=== PATIENT | male | born 1995 | race Caucasian/White ===

== ENCOUNTER 2018-08-01 11:29 | Emergency (ER) | payer OTHER ==
[~2018-08-01] VITALS: Ht 167.6 cm; Wt 68.0 kg
[~2018-08-01 11:29] MED LIST: AMOXICILLIN 50500 MG PO; BENADRYL25 MG PO; GENVOYA TABLET1 EACH PO; IBUPROFEN 600600 M1 PO; LISINOPRIL10 MG PO; MIRTAZAPINE45 MG PO; SEROQUEL 50 MG50 MG PO; SEROQUEL300 MG PO; STRIBILD TABLE1 EACH PO; TOPROL XL25 MG PO; VISTARIL50 MG PO; WELLBUTRIN XL300 MG PO; ZESTRIL10 MG PO
[2018-08-01] MEDS ORDERED: BUSPIRONE HCL10 MG PO (11:41)
[2018-08-01] MEDS ORDERED: HYDROXYZINE HCL10 M2 PO (11:41)
[2018-08-01 12:16] LABS: CALCIUM 9.2 mg/dL (8.5-10.1); CREATININE 0.8 mg/dL (0.6-1.3); POTASSIUM 4.1 mmol/L (3.5-5.1)
[2018-08-01 12:28] VITALS: BP 138/81
== END 2018-08-01 12:29 | disposition home or self-care (01) ==
LOC: M.ERS 11:29
PROVIDERS: Emergency Medicine Emergency Medical Services
DX: G25.71 Drug induced akathisia (principal); T43.595A Adverse effect of other antipsychotics and neuroleptics, initial encounter; Y92.89 Other specified places as the place of occurrence of the external cause; F31.9 Bipolar disorder, unspecified; Z88.5 Allergy status to narcotic agent

== ENCOUNTER 2020-12-02 14:07 | Emergency (ER) | payer OTHER ==
[~2020-12-02] VITALS: Ht 162.6 cm; Wt 68.0 kg
[~2020-12-02 14:07] MED LIST changes: +BUSPIRONE HCL10 MG PO; +HYDROXYZINE HCL10 M2 PO
[2020-12-02 14:38] LABS: URINE BILIRUBIN NEGATIVE (Negative); URINE BLOOD NEGATIVE (Negative); URINE CLARITY CLEAR; URINE COLOR YELLOW; URINE GLUCOSE-RANDOM NEGATIVE (Negative); URINE KETONES NEGATIVE (Negative); URINE LEUKOCYTES-REFLEX NEGATIVE (Negative); URINE NITRITE-REFLEX NEGATIVE (Negative); URINE PROTEIN NEGATIVE (Negative)
[2020-12-02 14:39] LABS: ABSOLUTE EOSINOPHILS 0.2 thou/uL (0.0-0.7); ABSOLUTE LYMPHOCYTES 3.1 thou/uL (0.8-5.3); ABSOLUTE MONOCYTES 0.2 thou/uL (0.0-1.2); ABSOLUTE NEUTROPHILS 1.6 thou/uL (1.6-8.1); BASOPHILS 0.7 %; EOSINOPHILS 4.1 %; HEMATOCRIT 48.6 % (42.0-52.0); LYMPHOCYTES 59.1 %; MCH 30.7 pg (26.0-34.0); MCV 87.6 fL (80.0-100.0); MONOCYTES 4.6 %; MPV 7.4 fl. (7.2-11.1); NUCLEATED RBCS 0 /100WBC; PLATELET COUNT* 285 thou/uL (150-400); POLYS 31.5 %; RBC 5.56 mil/uL (4.50-6.00); RDW-CV 13.2 % (10.5-14.5); WBC 5.2 thou/uL (4.0-11.0)
[2020-12-02 14:46] LABS: AMP/METHAMP POSITIVE (Negative); BARBITURATES Negative (Negative); BENZODIAZEPINES Negative (Negative); COCAINE Negative (Negative); METHADONE Negative (Negative); OPIATES Negative (Negative); PCP Negative (Negative); THC Negative (Negative)
[2020-12-02 14:48] LABS: CALCIUM 8.3 mg/dL (8.5-10.1); CREATININE 0.9 mg/dL (0.6-1.3); POTASSIUM 3.9 mmol/L (3.5-5.1)
[2020-12-02 14:52] LABS: ALBUMIN 4.1 g/dL (3.4-5.0); TOTAL BILIRUBIN 0.3 mg/dL (<0.1-1.0); TOTAL PROTEIN 7.3 g/dL (6.4-8.2)
[2020-12-02 14:56] LABS: ALCOHOL 392 mg/dL (<10); SALICYLATE 3.3 mg/dL (2.8-20.0)
[2020-12-02 14:59] LABS: ACETAMINOPHEN < 2 ug/mL (10-30)
[2020-12-03] MEDS ORDERED: HYDROXYZINE HCL25 M2 PO (00:23)
[2020-12-03 00:35] VITALS: BP 122/79
== END 2020-12-03 00:35 | disposition home or self-care (01) ==
LOC: M.ERS 14:07
PROVIDERS: Family Medicine
DX: F10.129 Alcohol abuse with intoxication, unspecified (principal); Y90.8 Blood alcohol level of 240 mg/100 ml or more; F17.210 Nicotine dependence, cigarettes, uncomplicated; Z88.5 Allergy status to narcotic agent; Z79.899 Other long term (current) drug therapy